=== PATIENT | male | born 1955 | race Caucasian/White ===

== ENCOUNTER 2016-09-07 14:46 | Outpatient (CLI) | payer BC ==
[2016-09-07 15:56] LABS: ALT (SGPT) 48 U/L (0-55); AST (SGOT) 30 U/L (5-34); Albumin 4.4 g/dL (3.4-4.8); Alkaline Phosphatase 85 U/L (40-150); Anion Gap 13 mmol/L (10-20); BUN (Urea Nitrogen) 16 mg/dL (8.4-25.7); Bilirubin, Total 1.4 mg/dL (0.2-1.2); Calc. Creatinine Clearance 0 mL/min (70-130); Calcium 9.5 mg/dL (7.8-10.44); Carbon Dioxide 27 mmol/L (23-31); Cardiac Risk 3.4 (Less than 4.5); Chloride 107 mmol/L (98-107); Cholesterol 169 mg/dL (< 200 Desired); Estimated GFR-MDRD 57; Glucose 113 mg/dL (80-115); HDL Cholesterol 49 mg/dL (>60 Neg Risk); LDL Cholesterol, Calculated 95 mg/dL; Potassium 4.9 mmol/L (3.5-5.1); Protein, Total 7.4 g/dL (5.8-8.1); Sodium 142 mmol/L (136-145); Triglycerides 124 mg/dL (Less than 150)
[2016-09-07 17:06] LABS: #Basophils 0.1 thou/uL (0.0-0.2); #Eosinphils 0.3 thou/uL (0.0-0.7); #Lymphocytes 2.1 thou/uL (1.20-3.40); #Monocytes 0.7 thou/uL (0.11-0.59); #Neutrophils 4.8 thou/uL (1.40-6.50); %Basophils 0.9 % (0.0-1.0); %Eosinophils 3.9 % (0.0-10.0); %Lymphocytes 26.3 % (21.0-51.0); Hemoglobin 16.9 g/dL (14.0-18.0); Mean Corpuscular HGB CONC 33.6 g/dL (32.0-36.0); Mean Corpuscular Hemoglobin 31.7 pg (27.0-31.0); Mean Corpuscular Volume 94.4 fl (80.0-94.0); Mean Platelet Volume 6.8 fL (7.4-10.4); Platelet Count 270 thou/uL (130-400); RBC Distribution Width 12.8 % (11.5-14.5); Red Blood Cell (RBC) Count 5.34 mill/uL (4.70-6.10)
[2016-09-07 17:45] LABS: Hemoglobin A1c 5.9 % (4.0-6.0)
== END 2016-09-07 14:47 | disposition home or self-care (01) ==
LOC: HPCALD 14:46
PROVIDERS: ATTEND Family Medicine
DX: E78.5 Hyperlipidemia, unspecified (principal); I10 Essential (primary) hypertension; E11.9 Type 2 diabetes mellitus without complications
CPT/HCPCS: 36415; 80053; 80061; 83036; 85025

== ENCOUNTER 2021-08-19 11:20 | Emergency (ER) | payer BC ==
[2021-08-19] MEDS ORDERED: Iopamidol 370 76% 100 ML VIAL FS ONE (11:21)
[2021-08-19] MEDS ORDERED: Aspirin 325 MG TAB ONE (12:16)
== END 2021-08-19 21:35 | disposition short-term general hospital (02) ==
LOC: BURERS 11:20
DX: G45.9 Transient cerebral ischemic attack, unspecified (principal); R29.702 NIHSS score 2; E78.5 Hyperlipidemia, unspecified; E11.9 Type 2 diabetes mellitus without complications; Z20.822 Contact with and (suspected) exposure to COVID-19; Z79.899 Other long term (current) drug therapy
CPT/HCPCS: 36416; 70450; 70496; 70498; 71045; 80053; 83880; 84484; 85025; 85610; 85730; 93005; 94760; Q9967; U0003; U0005

== ENCOUNTER 2024-02-01 15:01 | Emergency (ER) | payer MEDICARE | END 2024-02-01 17:06 | disposition home or self-care (01) | LOC: BURERS 15:01 | DX: S80.02XA Contusion of left knee, initial encounter (principal); M54.50 Low back pain, unspecified; G89.29 Other chronic pain; W18.30XA Fall on same level, unspecified, initial encounter | CPT/HCPCS: 70450; 72125; 72131 ==